=== PATIENT | female | born 1930 | race Caucasian/White ===

== ENCOUNTER → 2016-07-15 | Outpatient (REF) | payer MEDICARE, OTHER ==
[~2016-07-15] MED LIST: ALBU17IN2 INH; ARMO1TAB PO; AZIT500T2 PO; BENZ200C44 PO; FLON0.054; GUAI1TAB PO; LEVA500T PO; PRED20TAB PO; TYLE325T5 PR; tylenol PR
[2016-07-15 18:43] LABS: BASO % 0.4 % (0.0-1.0); EOS # 0.2 K/mm3 (0.0-0.50); EOS % 2.9 % (0.0-3.0); LARGE UNSTAINED CELL # 0.1 K/mm3 (0.0-0.4); LARGE UNSTAINED CELL % 1.8 % (0.0-4.0); LYMPH # 1.8 K/mm3 (1.5-4.5); LYMPH % 27.9 % (24.0-44.0); MEAN CORPUSCULAR HEMOGLOBIN 29.5 pg (27.0-33.0); MEAN CORPUSCULAR HGB CONC 33.1 g/dl (32.0-36.5); MEAN CORPUSCULAR VOLUME 89.4 fl (80.0-96.0); MONO # 0.5 K/mm3 (0.0-0.8); PLATELET COUNT, AUTOMATED 285 k/mm3 (150-450); WHITE BLOOD COUNT 6.6 K/mm3 (4.0-10.0)
[2016-07-15 19:28] LABS: PERCENT SATURATION 24.4 % (13.2-37.4)
== END ==
LOC: M LAB REF 16:23
DX: D50.9 Iron deficiency anemia, unspecified (principal)

== ENCOUNTER → 2016-10-18 | Outpatient (REF) | payer MEDICARE, OTHER ==
[~2016-10-18] MED LIST changes: -BENZ200C44 PO; +BENZ200C53 PO; +LEVA1TAB2 PO; -LEVA500T PO
[2016-10-22 00:07] LABS: Lyme Disease IgG/IgM Antibodie <0.91 ISR (0.00-0.90); Lyme Disease IgM Ab Quantitati <0.80 index (0.00-0.79)
== END ==
LOC: M LAB REF 16:59
PROVIDERS: ATTEND Nurse Practitioner Family
DX: Z11.59 Encounter for screening for other viral diseases (principal); S90.862A Insect bite (nonvenomous), left foot, initial encounter; X58.XXXA Exposure to other specified factors, initial encounter; Y93.9 Activity, unspecified; Y92.9 Unspecified place or not applicable; Y99.8 Other external cause status

== ENCOUNTER → 2017-11-27 | Outpatient (REF) | payer MEDICARE, OTHER ==
[2017-11-27 15:11] LABS: FREE T3 2.7 PG/ML (2.2-4.0)
== END ==
LOC: M LAB REF 13:58
DX: E03.9 Hypothyroidism, unspecified (principal)
CPT/HCPCS: 84481

== ENCOUNTER → 2018-02-23 | Outpatient (REF) | payer MEDICARE, OTHER ==
[2018-02-23 13:25] LABS: FREE T3 2.5 PG/ML (2.2-4.0)
== END ==
LOC: M LAB REF 12:03
DX: E03.9 Hypothyroidism, unspecified (principal)
CPT/HCPCS: 84481

== ENCOUNTER → 2018-02-24 | Outpatient (REF) | payer MEDICARE, OTHER ==
[2018-02-24 16:50] LABS: IONIZED CALCIUM 3.8 MG/DL (4.5-5.3)
[2018-02-24 17:20] LABS: PTH INTACT 14.4 PG/ML (18.5-88.0)
== END ==
LOC: M LAB REF 16:41
DX: E83.51 Hypocalcemia (principal)
CPT/HCPCS: 82330

== ENCOUNTER 2018-03-07 14:55 | Inpatient (IN) | payer MEDICARE, OTHER ==
[2018-03-07 16:02] LABS: BEDSIDE GLUCOSE 93 MG/DL (83-110)
[2018-03-07 16:15] LABS: OSMOLALITY SERUM 289 MOSM/KG (280-301)
[2018-03-07 16:22] LABS: BASO # 0.1 10^3/uL (0.0-0.2); BASO % 0.7 % (0.0-1.0); EOS # 0.3 10^3/uL (0.0-0.50); EOS % 2.9 % (0.0-3.0); HEMATOCRIT 39.2 % (36.0-47.0); IMMATURE GRANULOCYTE % 0.1 % (0-3.0); LYMPH # 2.5 10^3/uL (1.5-4.5); MEAN CORPUSCULAR HEMOGLOBIN 29.7 pg (27.0-33.0); MEAN CORPUSCULAR HGB CONC 33.2 g/dl (32.0-36.5); MEAN CORPUSCULAR VOLUME 89.5 fl (80.0-96.0); MONO # 0.9 10^3/uL (0.0-0.8); MONO % 10.2 % (0.0-5.0); NEUTROPHILS # 4.9 10^3/uL (1.8-7.7); NEUTROPHILS % 57.1 % (36.0-66.0); PLATELET COUNT, AUTOMATED 224 10^3/uL (150-450); RED BLOOD COUNT 4.38 10^6/uL (4.00-5.40); RED CELL DISTRIBUTION WIDTH 12.8 % (11.5-14.5); WHITE BLOOD COUNT 8.7 10^3/uL (4.0-10.0)
[2018-03-07 16:26] LABS: ALBUMIN 3.8 GM/DL (3.2-5.2); ALKALINE PHOSPHATASE 86 U/L (45-117); ALT/SGPT 28 U/L (12-78); ANION GAP 9 MEQ/L (8-16); AST/SGOT 27 U/L (7-37); BILIRUBIN,DIRECT < 0.1 MG/DL (0.0-0.2); BILIRUBIN,TOTAL 0.3 MG/DL (0.2-1.0); BLOOD UREA NITROGEN 22 MG/DL (7-18); CARBON DIOXIDE LEVEL 28 MEQ/L (21-32); CHLORIDE LEVEL 100 MEQ/L (98-107); CPK CREATINE PHOSPHOKINASE 246 U/L (26-192); CREATININE FOR GFR 1.31 MG/DL (0.55-1.30); ETHYL ALCOHOL (ETHANOL) < 0.003 % (0.000-0.010); GLUCOSE, FASTING 99 MG/DL (70-100); MB/CK RELATIVE INDEX 0.81 (< OR =4); SODIUM LEVEL 137 MEQ/L (136-145); THYROID STIMULATING HORMONE 0.413 uIU/ML (0.358-3.740); TROPONIN I < 0.02 NG/ML (< 0.10)
[2018-03-07 17:31] LABS: AMPHETAMINES LEVEL URINE NEGATIVE (NEGATIVE); BARBITURATES URINE NEGATIVE (NEGATIVE); BENZODIAZEPINES URINE NEGATIVE (NEGATIVE); CANNABINOIDS URINE NEGATIVE (NEGATIVE); COCAINE METABOLITE URINE NEGATIVE (NEGATIVE); METHADONE URINE NEGATIVE (NEGATIVE); OPIATES URINE NEGATIVE (NEGATIVE); PHENCYCLIDINE URINE NEGATIVE (NEGATIVE)
[2018-03-07] MEDS: amLODIPine 5 MG TAB PO ×2 (17:36→22:28)
[2018-03-07] MEDS ORDERED: hydrALAZINE INJ 20 MG/ML VIAL IV (19:30)
[2018-03-07] MEDS ORDERED: **hydrALAZINE HCL** 25 MG TAB PO (19:30)
[2018-03-07] MEDS ORDERED: ACETAMINOPHEN TAB 650MG DOSE (2X325MG) PO (19:45)
[2018-03-07] MEDS: **hydrALAZINE HCL** 25 MG TAB PO (22:36)
[2018-03-07] MEDS: MOM 30ML SUSPENSION UDC PO (22:48)
[2018-03-07] MEDS ORDERED: PILL CRUSHER/CUTTER 1 EACH XX (23:00)
[2018-03-07] MEDS ORDERED: THYROID 30 MG TAB PO (23:00)
[2018-03-08 04:37] LABS: BASO # 0.1 10^3/uL (0.0-0.2); BASO % 0.7 % (0.0-1.0); EOS # 0.2 10^3/uL (0.0-0.50); EOS % 2.8 % (0.0-3.0); HEMATOCRIT 37.6 % (36.0-47.0); HEMOGLOBIN 12.3 g/dl (12.0-15.5); IMMATURE GRANULOCYTE % 0.1 % (0-3.0); LYMPH # 2.3 10^3/uL (1.5-4.5); LYMPH % 32.3 % (24.0-44.0); MEAN CORPUSCULAR HEMOGLOBIN 29.7 pg (27.0-33.0); MEAN CORPUSCULAR HGB CONC 32.7 g/dl (32.0-36.5); MEAN CORPUSCULAR VOLUME 90.8 fl (80.0-96.0); MONO # 0.7 10^3/uL (0.0-0.8); MONO % 10.1 % (0.0-5.0); NEUTROPHILS # 3.8 10^3/uL (1.8-7.7); PLATELET COUNT, AUTOMATED 213 10^3/uL (150-450); RED BLOOD COUNT 4.14 10^6/uL (4.00-5.40); RED CELL DISTRIBUTION WIDTH 12.9 % (11.5-14.5); WHITE BLOOD COUNT 7.1 10^3/uL (4.0-10.0)
[2018-03-08 04:58] LABS: FREE T4 0.76 NG/DL (0.76-1.46)
[2018-03-08 05:03] LABS: ALBUMIN 3.4 GM/DL (3.2-5.2); ALBUMIN/GLOBULIN RATIO 1.17 (1.00-1.93); ALKALINE PHOSPHATASE 75 U/L (45-117); ALT/SGPT 21 U/L (12-78); ANION GAP 9 MEQ/L (8-16); AST/SGOT 24 U/L (7-37); BILIRUBIN,TOTAL 0.5 MG/DL (0.2-1.0); BLOOD UREA NITROGEN 22 MG/DL (7-18); CALCIUM LEVEL 6.9 MG/DL (8.8-10.2); CARBON DIOXIDE LEVEL 28 MEQ/L (21-32); CHLORIDE LEVEL 105 MEQ/L (98-107); CREATININE FOR GFR 1.11 MG/DL (0.55-1.30); GLOMERULAR FILTRATION RATE 49.6 (>32); GLUCOSE, FASTING 82 MG/DL (70-100); SODIUM LEVEL 142 MEQ/L (136-145); TOTAL PROTEIN 6.3 GM/DL (6.4-8.2)
[2018-03-08 05:14] LABS: CPK CREATINE PHOSPHOKINASE 223 U/L (26-192); MB/CK RELATIVE INDEX 0.85 (< OR =4); TROPONIN I < 0.02 NG/ML (< 0.10)
[2018-03-08] MEDS: THYROID 30 MG TAB PO (06:02)
[2018-03-08] MEDS: **hydrALAZINE HCL** 25 MG TAB PO ×3 (06:03→21:21)
[2018-03-08 07:32] LABS: FREE T3 2.4 PG/ML (2.2-4.0)
[2018-03-08] MEDS: amLODIPine 10 MG TAB PO (08:54)
[2018-03-09 04:37] LABS: BASO # 0.1 10^3/uL (0.0-0.2); BASO % 0.7 % (0.0-1.0); EOS # 0.3 10^3/uL (0.0-0.50); EOS % 3.3 % (0.0-3.0); HEMATOCRIT 38.9 % (36.0-47.0); HEMOGLOBIN 12.9 g/dl (12.0-15.5); IMMATURE GRANULOCYTE % 0.2 % (0-3.0); LYMPH # 2.5 10^3/uL (1.5-4.5); LYMPH % 30.4 % (24.0-44.0); MEAN CORPUSCULAR HEMOGLOBIN 30.1 pg (27.0-33.0); MEAN CORPUSCULAR HGB CONC 33.2 g/dl (32.0-36.5); MEAN CORPUSCULAR VOLUME 90.7 fl (80.0-96.0); MONO # 0.7 10^3/uL (0.0-0.8); MONO % 8.6 % (0.0-5.0); NEUTROPHILS # 4.6 10^3/uL (1.8-7.7); NEUTROPHILS % 56.8 % (36.0-66.0); PLATELET COUNT, AUTOMATED 219 10^3/uL (150-450); RED BLOOD COUNT 4.29 10^6/uL (4.00-5.40); RED CELL DISTRIBUTION WIDTH 13.2 % (11.5-14.5); WHITE BLOOD COUNT 8.1 10^3/uL (4.0-10.0)
[2018-03-09 04:58] LABS: ALBUMIN 3.3 GM/DL (3.2-5.2); ALBUMIN/GLOBULIN RATIO 0.94 (1.00-1.93); ALKALINE PHOSPHATASE 73 U/L (45-117); ALT/SGPT 22 U/L (12-78); ANION GAP 6 MEQ/L (8-16); AST/SGOT 25 U/L (7-37); BILIRUBIN,TOTAL 0.5 MG/DL (0.2-1.0); BLOOD UREA NITROGEN 27 MG/DL (7-18); CALCIUM LEVEL 6.5 MG/DL (8.8-10.2); CARBON DIOXIDE LEVEL 29 MEQ/L (21-32); CHLORIDE LEVEL 105 MEQ/L (98-107); CREATININE FOR GFR 1.26 MG/DL (0.55-1.30); GLOMERULAR FILTRATION RATE 42.9 (>32); GLUCOSE, FASTING 92 MG/DL (70-100); POTASSIUM SERUM 3.9 MEQ/L (3.5-5.1); SODIUM LEVEL 140 MEQ/L (136-145); TOTAL PROTEIN 6.8 GM/DL (6.4-8.2)
[2018-03-09] MEDS: THYROID 30 MG TAB PO (06:45)
[2018-03-09] MEDS: **hydrALAZINE HCL** 25 MG TAB PO (06:45)
[2018-03-09] MEDS: amLODIPine 10 MG TAB PO (08:49)
== END 2018-03-09 11:10 | disposition hospice, home (50) | DRG 305 ==
LOC: M ED 14:55 → M ED INP 19:34 → M PCU 21:48
DX: I16.0 Hypertensive urgency (principal); H11.31 Conjunctival hemorrhage, right eye; N18.3 Chronic kidney disease, stage 3 (moderate); E03.9 Hypothyroidism, unspecified; Z79.82 Long term (current) use of aspirin; Z79.899 Other long term (current) drug therapy; Z88.0 Allergy status to penicillin; Z88.2 Allergy status to sulfonamides

== ENCOUNTER → 2018-09-04 | Outpatient (CLI) | payer MEDICARE, OTHER ==
[~2018-09-04] MED LIST changes: +AMLO10TA5 PO; +ASPI81TA26 PO; -BENZ200C53 PO; +BENZ200C70 PO; +HYDR-3910 PO; +THYR60TA PO
--- NOTE | 2018-09-04 16:25 | REP ---
Lumbar spine five views History: Back pain There is no acute fracture or subluxation. The lumbar intervertebral discs are decreased in height. Vacuum phenomenon is present at the L2-3 level. These findings are consistent with disc degeneration. Osteophytes are present throughout the lumbar spine. There is narrowing of the L4-5 and L5-L1 facet joints. The bony structure is osteopenic. Impression: Degenerative change as described above. Electronically Signed by Rajinder Green MD 09/04/2018 04:16 P
== END ==
LOC: M WUC 15:45
PROVIDERS: ATTEND Family Medicine
DX: M54.5 Low back pain (principal); M51.36 Other intervertebral disc degeneration, lumbar region

== ENCOUNTER 2018-10-24 15:53 | Inpatient (IN) | payer MEDICARE, OTHER ==
[~2018-10-24] VITALS: Ht 154.9 cm; Wt 61.6 kg
[2018-10-24] MEDS ORDERED: ACETAMINOPHEN TAB 650MG DOSE (2X325MG) PO ONE (16:30)
[2018-10-24] MEDS ORDERED: ONDANSETRON 4MG/2ML VIAL (J2405) IV ONE (16:30)
[2018-10-24] MEDS ORDERED: NS 500 ML IV ONE (16:30)
[2018-10-24 16:31] LABS: BASO % 0.2 % (0.0-1.0); HEMATOCRIT 36.7 % (36.0-47.0); HEMOGLOBIN 12.5 g/dl (12.0-15.5); LYMPH # 0.6 10^3/uL (1.5-4.5); LYMPH % 3.5 % (24.0-44.0); MEAN CORPUSCULAR HEMOGLOBIN 30.5 pg (27.0-33.0); MEAN CORPUSCULAR HGB CONC 34.1 g/dl (32.0-36.5); MEAN CORPUSCULAR VOLUME 89.5 fl (80.0-96.0); MONO # 1.4 10^3/uL (0.0-0.8); MONO % 8.2 % (0.0-5.0); NEUTROPHILS # 14.7 10^3/uL (1.8-7.7); NEUTROPHILS % 87.7 % (36.0-66.0); PLATELET COUNT, AUTOMATED 201 10^3/uL (150-450); WHITE BLOOD COUNT 16.8 10^3/uL (4.0-10.0)
[2018-10-24 16:58] LABS: ALBUMIN 3.3 GM/DL (3.2-5.2); BILIRUBIN,DIRECT 0.2 MG/DL (0.0-0.2); BILIRUBIN,TOTAL 0.8 MG/DL (0.2-1.0); CALCIUM LEVEL 6.5 MG/DL (8.8-10.2); CREATININE FOR GFR 1.23 MG/DL (0.55-1.30); POTASSIUM SERUM 3.6 MEQ/L (3.5-5.1)
[2018-10-24] MEDS ORDERED: NS 1,000 ML IV ONE (17:30)
[2018-10-24] MEDS ORDERED: ISOVUE-370 76% 100ML VIAL (Q9967) As Ordered ONE (17:34)
--- NOTE | 2018-10-24 17:45 | REP ---
Clinical: Nausea. Technique: PA and lateral. Comparison: 07/25/2016. Findings: Left basilar atelectasis and small left pleural effusion identified on frontal radiograph with suspected left upper lobe atelectasis/infiltrate identified by lateral radiograph. Mediastinum and cardiac silhouette are normal. Right hemithorax appears clear. Skeletal structures are intact. Impression: Left upper lobe infiltrate and a left basilar atelectasis with small left pleural reaction. Follow-up to resolution is recommended. Electronically Signed by Dionicio Gerber MD 10/24/2018 05:36 P
[2018-10-24] MEDS ORDERED: HYDR25TA PO (18:03)
[2018-10-24 18:09] LABS: FREE T4 1.22 NG/DL (0.76-1.46); THYROID STIMULATING HORMONE 0.297 uIU/ML (0.358-3.740)
[2018-10-24] MEDS ORDERED: AZITHROMYCIN INJ 500 MG, VIAL MATE ADAPTER 1 EACH in D5W 250 ML IV ONE (19:00)
[2018-10-24] MEDS ORDERED: cefTRIAXone SOD 1 GM in D5W MINI-BAG PLUS 50 ML IV ONE (19:15)
--- NOTE | 2018-10-24 19:44 | REPVR ---
EXAM: US Pelvis Complete, Transabdominal EXAM DATE/TIME: 10/24/2018 6:03 PM CLINICAL HISTORY: 88 years old, female; generalized pelvic pain. Total hysterectomy for cervical cancer in ~1968. TECHNIQUE: Imaging protocol: Real-time transabdominal pelvic ultrasound with image documentation. Complete exam. COMPARISON: CT ABD/PEL W/IV CONTRAST ONLY 10/24/2018 5:38 PM FINDINGS: Uterus/cervix: Surgically absent. Right adnexa: Surgically absent. Left adnexa: Surgically absent. Free fluid: There is no free fluid. Bladder: 8.2 x 6.1 x 5.0 cm. Its volume is ~131 mL. There is no bladder wall thickening, mass or stone. There is a minimal amount of non-shadowing debris in the bladder. IMPRESSION: 1. The uterus and ovaries are surgically absent 2. The bladder is unremarkable except for minimal debris. Electronically signed by: Braulio Merlos On 10/24/2018 19:43:54 PM
--- NOTE | 2018-10-24 20:07 | REPVR ---
EXAM: CT Abdomen and Pelvis With Contrast EXAM DATE/TIME: 10/24/2018 5:39 PM CLINICAL HISTORY: 88 years old, female; Generalized abdominal pain TECHNIQUE: Imaging protocol: Axial computed tomography images of the abdomen and pelvis with intravenous contrast. Coronal and sagittal reformatted images were created and reviewed. Radiation optimization: All CT scans at this facility use at least one of these dose optimization techniques: automated exposure control; mA and/or kV adjustment per patient size (includes targeted exams where dose is matched to clinical indication); or iterative reconstruction. Contrast material: ISOVUE 370;Contrast volume: 100 ml;Contrast route: IV; COMPARISON: No relevant prior studies available. FINDINGS: Lungs: A subpleural pulmonary nodule at the posterior lateral aspect of the inferior lingular segment of the left upper lobe is incompletely imaged. It is at least 4 x 6 x 10 mm. The lung bases are otherwise clear. Heart: Heart size is normal. Liver: Focal hepatic steatosis at the anterolateral edge of segment 4 adjacent to the falciform ligament, which is a common incidental benign finding. The liver is otherwise unremarkable. Gallbladder and bile ducts: No biliary ductal dilatation. Pancreas: Normal. No ductal dilation. Spleen: Normal. No splenomegaly. Adrenals: Normal. No mass. Kidneys and ureters: Normal. No hydronephrosis. Stomach and bowel: Moderate sigmoid colonic diverticulosis without evidence of diverticulitis. Apparent colonic wall thickening at descending and proximal sigmoid colon is probably due to incomplete distention, but mild colitis cannot be excluded in the appropriate clinical setting (coronal image 40 and sagittal image 86). Appendix: The appendix is not identified. It may be surgically absent. There are no signs of appendicitis in its expected location. Intraperitoneal space: ~2 cc of free fluid in the posterior cul-de-sac has a density of only 0 HU. Vasculature: There is mild calcific atherosclerosis of the abdominal aorta and iliac arteries. There is no aneurysm. Lymph nodes: Normal. No enlarged lymph nodes. Bladder: Unremarkable as visualized. Reproductive: The uterus and ovaries are surgically absent. Bones/joints: Severe disc degeneration and narrowing at the tip between L2 and S1. Soft tissues: Unremarkable. IMPRESSION: 1. Moderate sigmoid colonic diverticulosis without evidence of diverticulitis. 2. Apparent colonic wall thickening at descending and proximal sigmoid colon is probably due to incomplete distention, but mild colitis cannot be excluded in the appropriate clinical setting. 3. ~2 cc of free fluid in the posterior cul-de-sac. 4. The uterus and ovaries are surgically absent. 5. A subpleural pulmonary nodule at the posterior lateral aspect of the inferior lingular segment of the left upper lobe is incompletely imaged. It is at least 4 x 6 x 10 mm. It is statistically most likely scarring or atelectasis. Neoplasia is unlikely, but cannot be excluded. In light of any comorbidities and the patient's age, a followup noncontrast chest CT in 3 months may be considered. Electronically signed by: Braulio Merlos On 10/24/2018 20:06:45 PM
[2018-10-24] MEDS ORDERED: MAALOX 30 ML SUSP *UDC PO PRN (20:15)
[2018-10-24] MEDS ORDERED: MOM 30ML SUSPENSION UDC PO PRN (20:15)
[2018-10-24] MEDS ORDERED: PILL CUTTER 1 EACH XX PRN (20:30)
[2018-10-25 00:30] VITALS: BP 143/68
[2018-10-25] MEDS ORDERED: PANTOPRAZOLE 40MG INJ (PROTONIX) (C9113) IV ONE (00:45)
[2018-10-25] MEDS ORDERED: ONDANSETRON 4MG/2ML VIAL (J2405) IV PRN (00:45)
[2018-10-25] MEDS: ACETAMINOPHEN 500 MG TAB PO PRN ×2 (00:59→09:13)
[2018-10-25] MEDS: DOCUSATE SODIUM 100 MG CAP PO SCH ×3 (00:59→20:25)
[2018-10-25 01:15] LABS: IONIZED CALCIUM 2.9 MG/DL (4.5-5.3)
[2018-10-25 01:51] LABS: CALCIUM LEVEL 5.7 MG/DL (8.8-10.2); CREATININE FOR GFR 1.38 MG/DL (0.55-1.30); GLOMERULAR FILTRATION RATE 38.5 (>32); POTASSIUM SERUM 3.8 MEQ/L (3.5-5.1)
[2018-10-25] MEDS ORDERED: CALCIUM GLUCONATE 1,000 MG in D5W MINI-BAG PLUS 100 ML IV ONE ×2 (02:00→22:45)
--- NOTE | 2018-10-25 02:01 | HPEPDOC ---
General Date of Admission 10/24/18 Date of Service: Oct 24, 2018 Chief Complaint The patient is a 88-year-old female admitted with a reason for visit of [facility]. 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 was sent to ED from urgent care for evaluation > here found to be febrile to 103,4, CXR showed left upper lobe infiltrates. Patient was admitted for community acquired pneumonia. She denied any cough before just started some cough in the ED. no phlegm production, poor appetite for 3 days and had chills 2 days ago and yesterday also. Home Medications Scheduled Aspirin (Aspirin EC) 81 Mg Tab, 81 MG PO DAILY, (Reported) Hydralazine HCl (Hydralazine HCl) 25 Mg Tablet, 25 MG PO BID, (Reported) Thyroid ([place] Thyroid) 60 Mg Tab, 60 MG PO DAILY, (Reported) TAKES WITH 15MG OF 30MG TALBET FOR TOTAL OF 75MG Thyroid,Pork ([place] Thyroid) 30 Mg Tab, 15 MG PO DAILY, (Reported) TAKES WITH 60MG TABLET FOR TOTAL DOSE OF 75MG Allergies Coded Allergies: Penicillins (Verified Allergy, Unknown, 10/24/18) sulfamethoxazole (Verified Allergy, Unknown, 10/24/18) trimethoprim (Verified Allergy, Unknown, 10/24/18) Past Medical History Medical History hypertension, hypothyroid, DM- diet controlled, HLD, hypocalcemia secondary to Iatrogenic hypoparathyroidism, CKD 3 and cervical cancer S/P resection, Cervical spondylosis. Surgical History bilateral cataract surgery tonsillectomy thyroidectomy hysterectomy and bilateral oophorectomy left ankle surgery Family History Significant Family History: Cancer (mother pancreatic cancer) Social History * Smoker: Denies Alcohol: Denies Drugs: denies A-FIB/CHADSVASC A-FIB History Current/History of A-Fib/PAF?: No Review of Systems Constitutional: Reports: Chills, Malaise Eyes: Denies: Pain, Vision change ENT: Denies: Head Aches, Ear Pain, Dysphagia Skin: Denies: Rash, Lesions, Breakdown Pulmonary: Reports: Cough; Denies: Dyspnea, Pleuritic Chest Pain, Other Symptoms Cardiovascular: Denies: Chest Pain, Palpitations, Orthopnea, Paroxysmal Noc. Dyspnea, Lt Headedness Gastrointestinal: Reports: Nausea, Constipation, Other Symptoms; Denies: Vomiting, Abdominal Pain, Diarrhea Genitourinary: Denies: Dysuria, Frequency, Incontinence, Retention Hematologic: Denies: Bruising, Bleeding Excessively Musculoskeletal: Denies: Neck Pain, Back Pain, Joint Pain, Muscle Pain, Spasms Neurological: Denies: Weakness, Numbness, Change in speech, Confusion Physical Examination General Exam: Positive: Alert, Cooperative, No Acute Distress Eye Exam: Positive: PERRLA, Conjunctiva & lids normal, EOMI; Negative: Sclera icteric ENT Exam: Positive: Atraumatic, Mucous membr. moist/pink, Pharynx Normal Neck Exam: Positive: Supple; Negative: JVD, thyromegaly Chest Exam: Positive: Clear to auscultation, Normal air movement, Other (few crackles in the left middle back) Heart Exam: Positive: Rate Normal, Regular Rhythm, Normal S1, Normal S2; Negative: Murmurs, Rubs Telemetry: Positive: No significant arrhythmia Abdomen Exam: Positive: Normal bowel sounds, Soft; Negative: Tenderness, Hepatospenomegaly Extremity Exam: Positive: Normal pulses; Negative: Clubbing, Cyanosis, Edema Skin Exam: Positive: Nl turgor and temperature; Negative: Breakdown, Lesion Neuro Exam: Positive: Normal Speech, Strength at 5/5 X4 ext, Normal Tone Psych Exam: Positive: Mental status NL, Mood NL, Oriented x 3 Vital Signs Vital Signs Date Time Temp Pulse Resp B/P (MAP) Pulse Ox O2 Delivery O2 Flow Rate FiO2 10/24/18 18:14 97.9 10/24/18 17:19 123/58 (79) 10/24/18 15:54 98 22 99 Room Air Laboratory Data Labs 24H Laboratory Tests 2 10/24/18 16:14: Osmolality 262L, Whole Blood Ionized Calcium 3.1*L 10/24/18 16:16: Immature Granulocyte % (Auto) 0.4, White Blood Count 16.8H, Red Blood Count 4.10, Hemoglobin 12.5, Hematocrit 36.7, Mean Corpuscular Volume 89.5, Mean Corpuscular Hemoglobin 30.5, Mean Corpuscular Hemoglobin Concent 34.1, Red Cell Distribution Width 13.2, Platelet Count 201, Neutrophils (%) (Auto) 87.7H, Lymphocytes (%) (Auto) 3.5L, Monocytes (%) (Auto) 8.2H, Eosinophils (%) (Auto) 0.0, Basophils (%) (Auto) 0.2, Neutrophils # (Auto) 14.7H, Lymphocytes # (Auto) 0.6L, Monocytes # (Auto) 1.4H, Eosinophils # (Auto) 0.0, Basophils # (Auto) 0.0, Nucleated Red Blood Cells % (auto) 0.0, Anion Gap 12, Glomerular Filtration Rate 44.0, Lactic Acid Level 1.0, Calcium Level 6.5L, Aspartate Amino Transf (AST/SGOT) 27, Alanine Aminotransferase (ALT/SGPT) 16, Alkaline Phosphatase 78, Total Bilirubin 0.8, Direct Bilirubin 0.2, Total Protein 8.0, Albumin 3.3, Albumin/Globulin Ratio 0.70L, Lipase 173, Thyroid Stimulating Hormone (TSH) 0.297L, Free Thyroxine 1.22 10/24/18 16:42: Urine Color YELLOW, Urine Appearance CLEAR, Urine pH 6.0, Urine Specific [place] 1.011, Urine Protein 1+H, Urine Glucose (UA) NEGATIVE, Urine Ketones 1+H, Urine Blood 2+H, Urine Nitrite NEGATIVE, Urine Bilirubin NEGATIVE, Urine Urobilinogen 0.2, Urine Leukocyte Esterase NEGATIVE, Urine WBC (Auto) 1, Urine RBC (Auto) 24H, Urine Hyaline Casts (Auto) 0, Urine Bacteria (Auto) NEGATIVE, Urine Squamous Epithelial Cells 0, Urine Sperm (Auto) 10/24/18 17:39: Urine Random Osmolality 400L, Urine Random Creatinine 120.0, Urine Random Sodium 10 CBC/BMP Laboratory Tests 10/24/18 16:16 Red Blood Count 4.10, Mean Corpuscular Volume 89.5, Mean Corpuscular Hemoglobin 30.5, Mean Corpuscular Hemoglobin Concent 34.1, Red Cell Distribution Width 13.2, Neutrophils (%) (Auto) 87.7 H, Lymphocytes (%) (Auto) 3.5 L, Monocytes (%) (Auto) 8.2 H, Eosinophils (%) (Auto) 0.0, Basophils (%) (Auto) 0.2, Neutrophils # (Auto) 14.7 H, Lymphocytes # (Auto) 0.6 L, Monocytes # (Auto) 1.4 H, Eosinophils # (Auto) 0.0, Basophils # (Auto) 0.0 Microbiology Microbiology 10/24/18 Blood Culture, Received Pending 10/24/18 Blood Culture, Received Pending Assessment/Plan 88 year old female with PMH of hypertension, hypothyroid , hyperlipidemia, ckd stage 3, DM diet controlled, 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 was sent to ED from urgent care for evaluation > here found to be febrile to 103,4, CXR showed left upper lobe infiltrates. Patient was admitted for community acquired pneumonia. Pneumonia will continue ceftriaxone blood cultures ordered. sputum culture, urine legionella, urine pneumococcal antigen. Hyponatremia could be due to pneumonia will monitor on IVF will recheck in 6 hours. Lactacidosis continue IVF. Hypothyroid h/o hemithyroidectomy continue home meds Iatrogenic Hypoparathyroid with hypocalcemia calcium gluconate and start oral replacement with calcitriol and calcium carbonate. Hypertension Bp well controlled will hold hydralazine for now. Left lung nodule/fibrosis/atelectasis may need follow up. Plan / VTE VTE Prophylaxis Ordered?: Yes KAREN DIXON MD Oct 24, 2018 19:41
[2018-10-25 02:25] LABS: MAGNESIUM LEVEL 2.2 MG/DL (1.8-2.4)
[2018-10-25 06:00] VITALS: BP 125/53
[2018-10-25] MEDS ORDERED: LevoFLOXacin 750 MG TABLET PO SCH (06:00)
[2018-10-25 06:33] LABS: BASO % 0.2 % (0.0-1.0); HEMATOCRIT 31.1 % (36.0-47.0); HEMOGLOBIN 10.6 g/dl (12.0-15.5); LYMPH # 0.5 10^3/uL (1.5-4.5); LYMPH % 3.9 % (24.0-44.0); MEAN CORPUSCULAR HEMOGLOBIN 30.5 pg (27.0-33.0); MEAN CORPUSCULAR HGB CONC 34.1 g/dl (32.0-36.5); MEAN CORPUSCULAR VOLUME 89.4 fl (80.0-96.0); MONO # 1.1 10^3/uL (0.0-0.8); MONO % 8.6 % (0.0-5.0); NEUTROPHILS # 11.5 10^3/uL (1.8-7.7); NEUTROPHILS % 86.8 % (36.0-66.0); PLATELET COUNT, AUTOMATED 170 10^3/uL (150-450); RED BLOOD COUNT 3.48 10^6/uL (4.00-5.40); WHITE BLOOD COUNT 13.2 10^3/uL (4.0-10.0)
[2018-10-25 06:55] LABS: CALCIUM LEVEL 5.6 MG/DL (8.8-10.2); CREATININE FOR GFR 1.26 MG/DL (0.55-1.30); GLOMERULAR FILTRATION RATE 42.8 (>32); POTASSIUM SERUM 3.8 MEQ/L (3.5-5.1)
[2018-10-25] MEDS ORDERED: FAMOTIDINE 20 MG TAB PO SCH (09:00)
[2018-10-25] MEDS: CALCITRIOL 0.25 MCG CAP (S0169) PO SCH ×2 (09:11→20:23)
[2018-10-25] MEDS: THYROID 30 MG TAB PO SCH ×2 (09:12)
[2018-10-25] MEDS: ASPIRIN 81 MG ENTERIC TAB PO SCH (09:12)
[2018-10-25] MEDS: CALCIUM CARBONATE 500 MG CHEW U/D PO SCH ×4 (09:13→20:27)
[2018-10-25] MEDS: ENOXAPARIN 30 MG/0.3 ML SYR (J1650) SC SCH (09:13)
--- NOTE | 2018-10-25 11:18 | ECGEPIP ---
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
--- NOTE | 2018-10-25 12:44 | IPNPDOC ---
Date Seen The patient was seen on 10/25/18. Progress Note SUBJECTIVE: breathing is significantly improved feels better OBJECTIVE PHYSICAL EXAMINATION: VITAL SIGNS: Please see below. 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 was sent to ED from urgent care for evaluation > here found to be febrile to 103,4, CXR showed left upper lobe infiltrates. Patient was admitted for community acquired pneumonia. Pneumonia will continue ceftriaxone + azithro improving Hyponatremia improving sp IVFs CTM Lactacidosis sp IVFs Hypothyroid h/o hemithyroidectomy continue home meds Iatrogenic Hypoparathyroid with hypocalcemia sp calcium gluconate and start oral replacement with calcitriol and calcium carbonate. Hypertension Bp well controlled will hold hydralazine for now. Left lung nodule/fibrosis/atelectasis may need follow up. Dispo: PT consult for dc planning VS, I&O, 24H, [facility] Vital Signs/I&O Vital Signs Date Time Temp Pulse Resp B/P (MAP) Pulse Ox O2 Delivery O2 Flow Rate FiO2 10/25/18 09:50 2.0 10/25/18 06:00 98.2 74 17 125/53 (77) 93 10/25/18 00:04 Room Air I&O- Last 24 Hours up to 6 AM 10/25/18 06:00 Intake Total 1100 ml Output Total 0 ml Balance 1100 ml Laboratory Data 24H LABS Laboratory Tests 2 10/24/18 16:14: Osmolality 262L, Whole Blood Ionized Calcium 3.1*L 10/24/18 16:16: Immature Granulocyte % (Auto) 0.4, White Blood Count 16.8H, Red Blood Count 4.10, Hemoglobin 12.5, Hematocrit 36.7, Mean Corpuscular Volume 89.5, Mean Corpuscular Hemoglobin 30.5, Mean Corpuscular Hemoglobin Concent 34.1, Red Cell Distribution Width 13.2, Platelet Count 201, Neutrophils (%) (Auto) 87.7H, Lymphocytes (%) (Auto) 3.5L, Monocytes (%) (Auto) 8.2H, Eosinophils (%) (Auto) 0.0, Basophils (%) (Auto) 0.2, Neutrophils # (Auto) 14.7H, Lymphocytes # (Auto) 0.6L, Monocytes # (Auto) 1.4H, Eosinophils # (Auto) 0.0, Basophils # (Auto) 0.0, Nucleated Red Blood Cells % (auto) 0.0, Anion Gap 12, Glomerular Filtration Rate 44.0, Lactic Acid Level 1.0, Calcium Level 6.5L, Aspartate Amino Transf (AST/SGOT) 27, Alanine Aminotransferase (ALT/SGPT) 16, Alkaline Phosphatase 78, Total Bilirubin 0.8, Direct Bilirubin 0.2, Total Protein 8.0, Albumin 3.3, [place] min/Globulin Ratio 0.70L, Lipase 173, Thyroid Stimulating Hormone (TSH) 0.297L, Free Thyroxine 1.22 10/24/18 16:42: Urine Color YELLOW, Urine Appearance CLEAR, Urine pH 6.0, Urine Specific [place] 1.011, Urine Protein 1+H, Urine Glucose (UA) NEGATIVE, Urine Ketones 1+H, Urine Blood 2+H, Urine Nitrite NEGATIVE, Urine Bilirubin NEGATIVE, Urine Urobilinogen 0.2, Urine Leukocyte Esterase NEGATIVE, Urine WBC (Auto) 1, Urine RBC (Auto) 24H, Urine Hyaline Casts (Auto) 0, Urine Bacteria (Auto) NEGATIVE, Urine Squamous Epithelial Cells 0, Urine Sperm (Auto) 10/24/18 17:39: Urine Random Osmolality 400L, Urine Random Creatinine 120.0, Urine Random Sodium 10 10/25/18 01:03: Anion Gap 13, Glomerular Filtration Rate 38.5, Blood Urea Nitrogen 18, Creatinine 1.38H, Sodium Level 133#L, Potassium Level 3.8, Chloride Level 99, Carbon Dioxide Level 21, Calcium Level 5.7*L, Whole Blood Ionized Calcium 2.9*L, Magnesium Level 2.2 10/25/18 06:08: Anion Gap 8, Glomerular Filtration Rate 42.8, Blood Urea Nitrogen 17, Creatinine 1.26, Sodium Level 130L, Potassium Level 3.8, Chloride Level 98, Carbon Dioxide Level 24, Calcium Level 5.6*L, Whole Blood Ionized Calcium 3.3*L, Immature Granulocyte % (Auto) 0.5, White Blood Count 13.2H, Red Blood Count 3.48L, Hemoglobin 10.6L, Hematocrit 31.1L, Mean Corpuscular Volume 89.4, Mean C orpuscular Hemoglobin 30.5, Mean Corpuscular Hemoglobin Concent 34.1, Red Cell Distribution Width 13.2, Platelet Count 170, Neutrophils (%) (Auto) 86.8H, Lymphocytes (%) (Auto) 3.9L, Monocytes (%) (Auto) 8.6H, Eosinophils (%) (Auto) 0.0, Basophils (%) (Auto) 0.2, Neutrophils # (Auto) 11.5H, Lymphocytes # (Auto) 0.5L, Monocytes # (Auto) 1.1H, Eosinophils # (Auto) 0.0, Basophils # (Auto) 0.0, Nucleated Red Blood Cells % (auto) 0.0 CBC/BMP Laboratory Tests 10/24/18 16:16 Red Blood Count 4.10, Mean Corpuscular Volume 89.5, Mean Corpuscular Hemoglobin 30.5, Mean Corpuscular Hemoglobin Concent 34.1, Red Cell Distribution Width 13.2, Neutrophils (%) (Auto) 87.7 H, Lymphocytes (%) (Auto) 3.5 L, Monocytes (%) (Auto) 8.2 H, Eosinophils (%) (Auto) 0.0, Basophils (%) (Auto) 0.2, Neutrophils # (Auto) 14.7 H, Lymphocytes # (Auto) 0.6 L, Monocytes # (Auto) 1.4 H, Eosinophils # (Auto) 0.0, Basophils # (Auto) 0.0 10/25/18 01:03 Calcium Level 5.7 *L 10/25/18 06:08 Red Blood Count 3.48 L, Mean Corpuscular Volume 89.4, Mean Corpuscular Hem oglobin 30.5, Mean Corpuscular Hemoglobin Concent 34.1, Red Cell Distribution Width 13.2, Neutrophils (%) (Auto) 86.8 H, Lymphocytes (%) (Auto) 3.9 L, Monocytes (%) (Auto) 8.6 H, Eosinophils (%) (Auto) 0.0, Basophils (%) (Auto) 0.2, Neutrophils # (Auto) 11.5 H, Lymphocytes # (Auto) 0.5 L, Monocytes # (Auto) 1.1 H, Eosinophils # (Auto) 0.0, Basophils # (Auto) 0.0, Calcium Level 5.6 *L Microbiology Microbiology 10/24/18 Blood Culture, Received Pending 10/24/18 Blood Culture, Received Pending CLAYTON FOSTER MD Oct 25, 2018 12:44
[2018-10-25 14:00] VITALS: BP 109/44
[2018-10-25] MEDS ORDERED: AZITHROMYCIN 250 MG TAB PO SCH (21:00)
[2018-10-25 22:00] VITALS: BP 141/58
[2018-10-25] MEDS ORDERED: cefTRIAXone SOD 1 GM in D5W MINI-BAG PLUS 50 ML IV SCH (22:00)
[2018-10-25 22:34] LABS: CALCIUM LEVEL 5.7 MG/DL (8.8-10.2); CREATININE FOR GFR 1.36 MG/DL (0.55-1.30); GLOMERULAR FILTRATION RATE 39.2 (>32); POTASSIUM SERUM 3.7 MEQ/L (3.5-5.1)
[2018-10-25] MEDS ORDERED: FUROSEMIDE 20 MG/2 ML VIAL (J1940) IV ONE (23:45)
--- NOTE | 2018-10-26 00:09 | REPVR ---
EXAM: XR Abdomen, 1 View EXAM DATE/TIME: 10/25/2018 11:09 PM CLINICAL HISTORY: 88 years old, female; Bloating; Additional info: Abdominal distension TECHNIQUE: Imaging protocol: Frontal supine view of the abdomen/pelvis. COMPARISON: CT ABD/PEL W/IV CONTRAST ONLY 10/24/2018 5:38 PM FINDINGS: Gastrointestinal tract: Mild to moderate bowel gas with borderline to mild small bowel gas distention. There is relative paucity of colonic gas. Mild gas is noted in the stomach. Bones/joints: Degenerative change of the lumbar spine. IMPRESSION: Mild to moderate bowel gas with borderline to mild small bowel distention suggesting a small bowel obstruction. Electronically signed by: Malcolm Ortiz On 10/26/2018 00:09:08 AM
[2018-10-26] MEDS ORDERED: D5W/0.9% SODIUM CHLORIDE 1,000 ML IV SCH (02:45)
--- NOTE | 2018-10-26 03:00 | IPNPDOC ---
Text Note Date of Service The patient was seen on 10/26/18. NOTE All night patient very uncomfortable moaning and groaning. She complains that she has been unable to urinate all day and her abdomen is swollen with fluids. She was demanding lasix which takes at home. On my exam compared to yesterday her abdomen was significantly distended, tympanitic, bowel sounds present but sluggish. Bladder scan showed about 22 ml, Nurses tried to cath the patient but failed in the meantime patient urinated a significant amount spontaneously So Cath placement was held off. Also she was having several liquid stools though she is on colace which i have stopped. I ordered repeat labs and abdominal Xray which showed moderate gaseous distension of the small bowel and stomach , minimal gas in colon suggestive of SBO. I placed the Patient NPO, changed most of her meds to IV meds, NG insertion and suction. I did give her a dose of calcium gluconate and a dose of Lasix. Will start her on gentel hydration. Consider Surgical consult in the AM. Raina ALFREDO, I+O VSRaina, I+O Laboratory Tests 10/25/18 06:08 Red Blood Count 3.48 L, Mean Corpuscular Volume 89.4, Mean Corpuscular Hemoglobin 30.5, Mean Corpuscular Hemoglobin Concent 34.1, Red Cell Distribution Width 13.2, Neutrophils (%) (Auto) 86.8 H, Lymphocytes (%) (Auto) 3.9 L, Monocytes (%) (Auto) 8.6 H, Eosinophils (%) (Auto) 0.0, Basophils (%) (Auto) 0.2, Neutrophils # (Auto) 11.5 H, Lymphocytes # (Auto) 0.5 L, Monocytes # (Auto) 1.1 H, Eosinophils # (Auto) 0.0, Basophils # (Auto) 0.0, Calcium Level 5.6 *L 10/25/18 22:10 Calcium Level 5.7 *L Vital Signs Date Time Temp Pulse Resp B/P (MAP) Pulse Ox O2 Delivery O2 Flow Rate FiO2 10/25/18 22:00 98.5 81 20 141/58 (85) 98 2.0 10/25/18 00:04 Room Air I&O- Last 24 Hours up to 6 AM 10/26/18 06:00 Intake Total 1300 ml Output Total 500 ml Balance 800 ml KAREN DIXON MD Oct 26, 2018 03:00
[2018-10-26] MEDS: cefTRIAXone SOD 1 GM in D5W MINI-BAG PLUS 50 ML IV SCH (04:22)
[2018-10-26] MEDS ORDERED: FUROSEMIDE 20 MG/2 ML VIAL (J1940) IV ONE (05:00)
[2018-10-26 05:42] LABS: BASO % 0.3 % (0.0-1.0); EOS % 0.2 % (0.0-3.0); HEMATOCRIT 29.8 % (36.0-47.0); HEMOGLOBIN 10.1 g/dl (12.0-15.5); LYMPH # 0.7 10^3/uL (1.5-4.5); LYMPH % 6.1 % (24.0-44.0); MEAN CORPUSCULAR HEMOGLOBIN 29.4 pg (27.0-33.0); MEAN CORPUSCULAR HGB CONC 33.9 g/dl (32.0-36.5); MEAN CORPUSCULAR VOLUME 86.6 fl (80.0-96.0); MONO # 1.1 10^3/uL (0.0-0.8); MONO % 9.1 % (0.0-5.0); NEUTROPHILS # 9.7 10^3/uL (1.8-7.7); NEUTROPHILS % 83.9 % (36.0-66.0); PLATELET COUNT, AUTOMATED 187 10^3/uL (150-450); RED BLOOD COUNT 3.44 10^6/uL (4.00-5.40); WHITE BLOOD COUNT 11.6 10^3/uL (4.0-10.0)
[2018-10-26 06:00] VITALS: BP 135/62
[2018-10-26 06:00] LABS: CALCIUM LEVEL 6.3 MG/DL (8.8-10.2); CREATININE FOR GFR 1.45 MG/DL (0.55-1.30); GLOMERULAR FILTRATION RATE 36.4 (>32); POTASSIUM SERUM 3.7 MEQ/L (3.5-5.1)
--- NOTE | 2018-10-26 08:03 | REPVR ---
EXAM: CT Abdomen and Pelvis Without Contrast EXAM DATE/TIME: 10/26/2018 7:48 AM CLINICAL HISTORY: 88 years old, female; Pain and Abnormal Findings; Abnormal Radiologic Finding of the Abdomen; Radiologic exam and body structure: CT A/P AND ABD XRAY; Abdominal tenderness and Bloating and Constipation and Nausea; Abdominal pain; Generalized; Additional Info: abd pain, xray with possible SBO TECHNIQUE: Imaging protocol: Axial computed tomography images of the abdomen and pelvis without contrast. Coronal and sagittal reformatted images were created and reviewed. Radiation optimization: All CT scans at this facility use at least one of these dose optimization techniques: automated exposure control; mA and/or kV adjustment per patient size (includes targeted exams where dose is matched to clinical indication); or iterative reconstruction. COMPARISON: CT ABD/PEL W/IV CONTRAST ONLY 10/24/2018 5:38 PM FINDINGS: Lungs: Focal consolidation in the lingula. Pleural space: Moderate bilateral pleural effusions. Liver: Normal. No mass. Gallbladder and bile ducts: Normal. No calcified stones. No ductal dilation. Pancreas: Normal. No ductal dilation. Spleen: Normal. No splenomegaly. Adrenals: Normal. No mass. Kidneys and ureters: Normal. No hydronephrosis. Stomach and bowel: Fluid in the right colon. Sigmoid diverticulosis without diverticulitis. No abnormal bowel dilatation. No abnormal bowel wall thickening. Appendix: The appendix is not seen. However, there is no evidence of appendicitis. Intraperitoneal space: No free air. Mild ascites. Vasculature: No abdominal aortic aneurysm. Moderate calcified atherosclerotic disease. Lymph nodes: Normal. No enlarged lymph nodes. Bladder: Unremarkable as visualized. Reproductive: Status post hysterectomy. Bones/joints: Severe degenerative spine. Mild degenerative changes of the hips. No acute fracture. Soft tissues: Status post subcutaneous injection in the ventral left hemiabdomen. There are multiple granulomas in the subcutaneous tissue in the buttock. IMPRESSION: 1. Diarrhea of unknown etiology. 2. Mild ascites. Unchanged from prior. 3. Focal consolidation in the lingula. Increased from prior. Suspicious for pneumonia. 4. Bilateral pleural effusions. Increased from prior. 5. Additional findings as described. Electronically signed by: Chico Ruiz On 10/26/2018 08:02:27 AM
[2018-10-26 08:54] LABS: ALBUMIN 2.2 GM/DL (3.2-5.2); BILIRUBIN,DIRECT 0.1 MG/DL (0.0-0.2); BILIRUBIN,TOTAL 0.2 MG/DL (0.2-1.0); TOTAL PROTEIN 6.2 GM/DL (6.4-8.2)
[2018-10-26] MEDS ORDERED: LevoFLOXacin 750 MG TABLET PO SCH (09:00)
[2018-10-26] MEDS: CALCITRIOL 0.25 MCG CAP (S0169) PO SCH ×2 (09:13→21:36)
[2018-10-26] MEDS: ASPIRIN 81 MG ENTERIC TAB PO SCH (09:13)
[2018-10-26] MEDS: PANTOPRAZOLE 40MG INJ (PROTONIX) (C9113) IV SCH (09:13)
[2018-10-26] MEDS: CALCIUM CARBONATE 500 MG CHEW U/D PO SCH ×3 (09:13→21:37)
[2018-10-26] MEDS: ENOXAPARIN 30 MG/0.3 ML SYR (J1650) SC SCH (09:13)
[2018-10-26] MEDS: THYROID 30 MG TAB PO SCH ×2 (09:14→09:18)
[2018-10-26] MEDS: CALCIUM GLUCONATE 1,000 MG in D5W MINI-BAG PLUS 100 ML IV SCH ×2 (09:14→21:36)
[2018-10-26] MEDS ORDERED: LORazepam 0.5 MG TAB PO ONE (10:30)
[2018-10-26 14:00] VITALS: BP 131/61
--- NOTE | 2018-10-26 14:32 | IPNPDOC ---
Date Seen The patient was seen on 10/26/18. Progress Note SUBJECTIVE: extremely anxious on my exam repeatedly requesting to go home acknowledges abdomen is distended but reports is "gas" reports liquid stools OBJECTIVE PHYSICAL EXAMINATION: VITAL SIGNS: Please see below. 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 was sent to ED from urgent care for evaluation > here found to be febrile to 103,4, CXR showed left upper lobe infiltrates. Patient was admitted for community acquired pneumonia. #CAP #Diarrhea #Pleural effusion seen on CT #Hyponatremia #Hypothyroidism h/o hemithyroidectomy #Iatrogenic Hypoparathyroid with hypocalcemia #HTN - although AXR had concern for SBO, follow up CT scan did not show SBO and gen surgery manager registration reviewd CT and felt ?ileus but no SBO - therefore pt resumed on diet and discontinued IVFs given - CT did show pleural effusion and therefore this should have a diagnostic tap given patient admitted with PNA, plan for thoracentesis tomorrow - Cont IV ceftriaxone and PO azithromycin - sp calcium gluconate and start oral replacement with calcitriol and calcium carbonate. - pt takes prn PO lasix 20mg at home; received IV lasix this am; will hold off on additional doses for now - given reports of diarrhea and is on abx, check cdiff - start ativan prn anxiety as pt very anxioius Dispo: PT consult for dc planning VS, I&O, 24H, Fishbone Vital Signs/I&O Vital Signs Date Time Temp Pulse Resp B/P (MAP) Pulse Ox O2 Delivery O2 Flow Rate FiO2 10/26/18 06:00 97.7 78 18 135/62 (86) 99 2.0 10/25/18 00:04 Room Air I&O- Last 24 Hours up to 6 AM 10/26/18 05:59 Intake Total 1300 ml Output Total 500 ml Balance 800 ml Laboratory Data 24H LABS Laboratory Tests 2 10/25/18 22:10: Anion Gap 11, Glomerular Filtration Rate 39.2, Blood Urea Nitrogen 20H, Creatinine 1.36H, Sodium Level 130L, Potassium Level 3.7, Chloride Level 97L, Carbon Dioxide Level 22, Calcium Level 5.7*L 10/26/18 05:09: Anion Gap 8, Glomerular Filtration Rate 36.4, Calcium Level 6.3L, Immature Granulocyte % (Auto) 0.4, White Blood Count 11.6H, Red Blood Count 3.44L, Hemoglobin 10.1L, Hematocrit 29.8L, Mean Corpuscular Volume 86.6, Mean Corpuscular Hemoglobin 29.4, Mean Corpuscular Hemoglobin Concent 33.9, Red Cell Distribution Width 13.2, Platelet Count 187, Neutrophils (%) (Auto) 83.9H, Lymphocytes (%) (Auto) 6.1L, Monocytes (%) (Auto) 9.1H, Eosinophils (%) (Auto) 0.2, Basophils (%) (Auto) 0.3, Neutrophils # (Auto) 9.7H, Lymphocytes # (Auto) 0.7L, Monocytes # (Auto) 1.1H, Eosinophils # (Auto) 0.0, Basophils # (Auto) 0.0, Nucleated Red Blood Cells % (auto) 0.0, Aspartate Amino Transf (AST/SGOT) 29, Alanine Aminotransferase (ALT/SGPT) 17, Alkaline Phosphatase 63, Total Bilirubin 0.2#, Direct Bilirubin 0.1, Total Protein 6.2#L, Albumin 2.2#L, Albumin/Globulin Ratio 0.55L, Lipase 147 CBC/BMP Laboratory Tests 10/25/18 22:10 Calcium Level 5.7 *L 10/26/18 05:09 Red Blood Count 3.44 L, Mean Corpuscular Volume 86.6, Mean Corpuscular Hem oglobin 29.4, Mean Corpuscular Hemoglobin Concent 33.9, Red Cell Distribution Width 13.2, Neutrophils (%) (Auto) 83.9 H, Lymphocytes (%) (Auto) 6.1 L, Monocytes (%) (Auto) 9.1 H, Eosinophils (%) (Auto) 0.2, Basophils (%) (Auto) 0.3, Neutrophils # (Auto) 9.7 H, Lymphocytes # (Auto) 0.7 L, Monocytes # (Auto) 1.1 H, Eosinophils # (Auto) 0.0, Basophils # (Auto) 0.0 Microbiology Microbiology 10/24/18 Blood Culture - Preliminary, Resulted No growth after 24 hours . All specim... 10/24/18 Blood Culture - Preliminary, Resulted No growth after 24 hours . All specim... 10/25/18 Gram Stain - Final, Complete 10/25/18 Sputum Culture - Final, Complete CLAYTON FOSTER MD Oct 26, 2018 14:32
[2018-10-26] MEDS: LORazepam 0.5 MG TAB PO PRN (21:37)
[2018-10-26 22:00] VITALS: BP 132/62
[2018-10-27] MEDS: cefTRIAXone SOD 1 GM in D5W MINI-BAG PLUS 50 ML IV SCH (04:27)
[2018-10-27 06:00] VITALS: BP 138/67
[2018-10-27 06:58] LABS: BASO % 0.5 % (0.0-1.0); EOS # 0.2 10^3/uL (0.0-0.50); EOS % 1.8 % (0.0-3.0); HEMATOCRIT 31.4 % (36.0-47.0); HEMOGLOBIN 10.7 g/dl (12.0-15.5); LYMPH % 11.8 % (24.0-44.0); MEAN CORPUSCULAR HGB CONC 34.1 g/dl (32.0-36.5); MONO # 1.2 10^3/uL (0.0-0.8); MONO % 13.1 % (0.0-5.0); NEUTROPHILS # 6.4 10^3/uL (1.8-7.7); NEUTROPHILS % 72.5 % (36.0-66.0); PLATELET COUNT, AUTOMATED 209 10^3/uL (150-450); RED BLOOD COUNT 3.57 10^6/uL (4.00-5.40); WHITE BLOOD COUNT 8.9 10^3/uL (4.0-10.0)
[2018-10-27 07:26] LABS: CALCIUM LEVEL 6.8 MG/DL (8.8-10.2); CREATININE FOR GFR 1.2 MG/DL (0.55-1.30); GLOMERULAR FILTRATION RATE 45.2 (>32); POTASSIUM SERUM 3.2 MEQ/L (3.5-5.1)
[2018-10-27] MEDS: THYROID 30 MG TAB PO SCH ×2 (08:47→08:49)
[2018-10-27] MEDS: ASPIRIN 81 MG ENTERIC TAB PO SCH (08:47)
[2018-10-27] MEDS: PANTOPRAZOLE 40MG INJ (PROTONIX) (C9113) IV SCH (08:47)
[2018-10-27] MEDS: CALCITRIOL 0.25 MCG CAP (S0169) PO SCH ×2 (08:47→21:23)
[2018-10-27] MEDS: CALCIUM GLUCONATE 1,000 MG in D5W MINI-BAG PLUS 100 ML IV SCH ×2 (08:47→21:23)
[2018-10-27] MEDS: CALCIUM CARBONATE 500 MG CHEW U/D PO SCH ×3 (08:48→21:23)
[2018-10-27] MEDS: LORazepam 0.5 MG TAB PO PRN (09:57)
[2018-10-27] MEDS ORDERED: POTASSIUM CHLORIDE 10 MEQ SR TABLET PO ONE (11:00)
--- NOTE | 2018-10-27 11:32 | IPN ---
DATE OF SERVICE: 10/27/2018 Patient seen and examined at the bedside. Chart has been reviewed. Patient denies any fever, chills, denies any cough productive of sputum. Still with some short of breath but anxious to go home. The patient has been treated with IV ceftriaxone with decreased in white count from 16,000 to 8.9. Sputum culture shows oropharyngeal contamination, two sets of blood cultures on 10/24/2018 are negative. Chest x-ray on 10/24/2018 shows left upper lobe infiltrate, left basilar atelectasis and small left pleural reaction. CT abdomen and pelvis on 10/26/2018 due to complaints of abdominal pain showed mild ascites, diarrhea of unknown origin, focal consolidation in the lingula suspicious for pneumonia, bilateral pleural effusion increased from prior. Temperature 98.1, pulse 84, respiratory rate 18,m blood pressure 138/67, 96% 2 liters nasal cannula. Generally patient is awake, alert, oriented times three, answering questions appropriately. No confrontational dyspnea. No use of accessory or respiratory muscles. Mucous membranes are pink and moist. No jugular venous distention (JVD). No thyromegaly. Lungs: Diminished left base. Heart: S1, S2 in sinus rhythm. Abdomen is soft, nontender, nondistended. Positive bowel sounds. No cyanosis, clubbing or any pitting edema. LABORATORY DATA: White count 8.9, hemoglobin 10, hematocrit 31, platelet count 209. Sodium 135, potassium 3.2, chloride 101, bicarbonate 26, BUN 14, creatinine 1.2, glucose 97. ASSESSMENT/PLAN: This is an 88-year-old female with the past medical history significant for hypertension, hyperlipidemia, hyperthyroidism, diabetes diet controlled, hypocalcemia due to hypoparathyroidism, chronic kidney disease III, cervical carcinoma status post resection without chemo or radiation, found to have fever 103.4. Chest x-ray showing left upper lobe consolidation, admitted for community acquired pneumonia. IMPRESSION: 1. Community acquired pneumonia: Currently on IV ceftriaxone started on 10/26/2018. Sputum culture shows oropharyngeal contamination. Two sets of blood cultures were negative. 2. Sepsis secondary to pneumonia: Currently on IV antibiotics. 3. Hypocalcemia secondary to hypoparathyroidism: Currently on calcium gluconate twice a day. 4. Hypokalemia: Supplemented with K-Dur 40 mEq. 5. Hyponatremia without mental status changes. No headaches, seizure activity. 6. Bilateral pleural effusions status post IV Lasix. Thoracentesis today with pleural fluid analysis. 7. History of hypothyroidism and hemithyroidectomy: On supplemental Synthroid. 8. Diarrhea: Had four episodes of loose stools yesterday but had been on Milk of Magnesia. This has since been discontinued. 9. Anxiety on Ativan.
[2018-10-27 11:42] LABS: PH BODY FLUID 7.612 UNITS (NOT ESTABLISHED); SOURCE, BODY FLUID pH PLEURAL
[2018-10-27 11:51] LABS: APPEARANCE, BODY FLUID CLOUDY (CLEAR); PLEURAL FL COLOR YELLOW (COLORLESS); SOURCE, BODY FLUID PLEURAL
[2018-10-27 12:00] VITALS: BP 136/60
[2018-10-27 12:17] LABS: AMYLASE, BODY FLUID 31 U/L (NOT ESTABLISHED); CHOLESTEROL, BODY FLUID < 50 MG/DL (NOT ESTABLISHED); LDH, BODY FLUID 149 U/L (NOT ESTABLISHED); SOURCE, BODY FLUID AMYLASE PLEURAL; SOURCE, BODY FLUID CHOL PLEURAL; SOURCE, BODY FLUID GLUCOSE PLEURAL; SOURCE, BODY FLUID LDH PLEURAL; SOURCE, BODY FLUID TRIG PLEURAL; TRIGLYCERIDE, BODY FLUID 10 MG/DL (NOT ESTABLISHED)
[2018-10-27 12:18] LABS: SOURCE, BODY FLUID ALBUMIN PLEURAL; SOURCE, BODY FLUID TOT PROTEIN PLEURAL; TOTAL PROTEIN, BODY FLUID 2.1 G/DL (NOT ESTABLISHED)
--- NOTE | 2018-10-27 12:29 | REP ---
CHEST, TWO VIEWS: Two views of the chest are performed status post left thoracentesis. There is no pneumothorax. There appear to be very small bilateral effusions. Patch infiltrates are seen throughout the left lung. These are predominantly in the left upper lobe. IMPRESSION: No pneumothorax status post left thoracentesis. Diffuse left upper lobe infiltrate. Small bilateral effusions. Electronically Signed by Edmond Sanabria MD 10/28/2018 09:26 A
[2018-10-27 12:30] VITALS: BP 139/65
[2018-10-27 14:00] VITALS: BP 151/67
--- NOTE | 2018-10-27 20:12 | REP ---
Ultrasound-guided thoracentesis The procedure was performed by RADHA Ortega, under the direct supervision of Dr. Sanabria. The risks and benefits of the procedure were explained to the patient and informed consent was obtained both verbally and written. Directly prior to the start of the procedure, a formal timeout was completed in the exam room. Left pleural fluid was localized using ultrasound guidance. The skin was prepped and draped in a sterile fashion. 6 ml of 1% lidocaine was used as a local anesthetic. Using ultrasound guidance, an 8-Malagasy multi side-hole catheter was inserted and advanced into the fluid. 310 ml of yellow colored fluid was withdrawn and sent to the lab for analysis. The patient tolerated the procedure well and there were no immediate complications. After the appropriate amount of monitored convalescence, the patient was discharged from the department. Reviewed by RADHA Glover 10/27/2018 12:46 P Electronically Signed by Edmond Sanabria MD 10/27/2018 08:03 P
[2018-10-27 22:00] VITALS: BP 138/58
[2018-10-28] MEDS: cefTRIAXone SOD 1 GM in D5W MINI-BAG PLUS 50 ML IV SCH (03:56)
[2018-10-28 06:00] VITALS: BP 137/63
[2018-10-28 06:22] LABS: BASO % 0.5 % (0.0-1.0); EOS # 0.4 10^3/uL (0.0-0.50); EOS % 4.9 % (0.0-3.0); HEMATOCRIT 32.5 % (36.0-47.0); HEMOGLOBIN 10.9 g/dl (12.0-15.5); LYMPH # 1.4 10^3/uL (1.5-4.5); LYMPH % 16.5 % (24.0-44.0); MEAN CORPUSCULAR HEMOGLOBIN 29.1 pg (27.0-33.0); MEAN CORPUSCULAR HGB CONC 33.5 g/dl (32.0-36.5); MEAN CORPUSCULAR VOLUME 86.7 fl (80.0-96.0); MONO # 0.9 10^3/uL (0.0-0.8); MONO % 10.8 % (0.0-5.0); NEUTROPHILS # 5.5 10^3/uL (1.8-7.7); NEUTROPHILS % 66.6 % (36.0-66.0); PLATELET COUNT, AUTOMATED 272 10^3/uL (150-450); RED BLOOD COUNT 3.75 10^6/uL (4.00-5.40); WHITE BLOOD COUNT 8.3 10^3/uL (4.0-10.0)
[2018-10-28 06:52] LABS: CALCIUM LEVEL 7.6 MG/DL (8.8-10.2); CREATININE FOR GFR 1.18 MG/DL (0.55-1.30); GLOMERULAR FILTRATION RATE 46.1 (>32); POTASSIUM SERUM 3.4 MEQ/L (3.5-5.1)
[2018-10-28] MEDS: CALCIUM GLUCONATE 1,000 MG in D5W MINI-BAG PLUS 100 ML IV SCH ×2 (09:00→21:00)
[2018-10-28] MEDS: THYROID 30 MG TAB PO SCH ×2 (09:16→09:17)
[2018-10-28] MEDS: ENOXAPARIN 30 MG/0.3 ML SYR (J1650) SC SCH (09:16)
[2018-10-28] MEDS: CALCIUM CARBONATE 500 MG CHEW U/D PO SCH ×3 (09:17→21:13)
[2018-10-28] MEDS: PANTOPRAZOLE 40MG INJ (PROTONIX) (C9113) IV SCH (09:17)
[2018-10-28] MEDS: CALCITRIOL 0.25 MCG CAP (S0169) PO SCH ×2 (09:17→21:13)
[2018-10-28] MEDS: ASPIRIN 81 MG ENTERIC TAB PO SCH (09:17)
[2018-10-28] MEDS ORDERED: POTASSIUM CHLORIDE 10 MEQ SR TABLET PO ONE (10:00)
--- NOTE | 2018-10-28 10:22 | REP ---
PORTABLE CHEST: AP portable view of the chest is performed and compared to a prior study of 10/27/2018. There is left upper lobe infiltrate again seen unchanged compared to the prior study. Cardiomediastinal silhouette is unchanged. There is no pneumothorax. There is calcification of thoracic aorta. IMPRESSION: Stable left upper lobe infiltrate. No pneumothorax. Electronically Signed by Edmond Sanabria MD 10/29/2018 12:29 A
[2018-10-28] MEDS: FUROSEMIDE 20 MG/2 ML VIAL (J1940) IV SCH ×2 (11:42→16:10)
[2018-10-28 11:43] VITALS: BP 141/70
[2018-10-28 14:00] VITALS: BP 135/59
[2018-10-28 21:08] LABS: CALCIUM LEVEL 7.7 MG/DL (8.8-10.2); CREATININE FOR GFR 1.24 MG/DL (0.55-1.30); GLOMERULAR FILTRATION RATE 43.6 (>32); POTASSIUM SERUM 3.9 MEQ/L (3.5-5.1)
[2018-10-28 22:00] VITALS: BP 139/64
[2018-10-29 00:14] LABS: BODY FLUID CULTURE Not Indicated (.); LEGIONELLA ANTIGEN URINE Positive (Negative); ORGANISM ID Not indicated. (.); SPECIMEN SOURCE Urine (.); URINE STREP PNEUMONIAE ANTIGEN Negative (Negative)
[2018-10-29] MEDS: LORazepam 0.5 MG TAB PO PRN (00:33)
[2018-10-29] MEDS: cefTRIAXone SOD 1 GM in D5W MINI-BAG PLUS 50 ML IV SCH (03:51)
[2018-10-29 06:00] VITALS: BP 132/66
[2018-10-29] MEDS ORDERED: THYROID 30 MG TAB PO SCH (06:00)
[2018-10-29 06:12] LABS: BASO # 0.1 10^3/uL (0.0-0.2); BASO % 0.7 % (0.0-1.0); EOS # 0.4 10^3/uL (0.0-0.50); EOS % 4.5 % (0.0-3.0); HEMATOCRIT 35.9 % (36.0-47.0); LYMPH # 2.3 10^3/uL (1.5-4.5); LYMPH % 27.2 % (24.0-44.0); MEAN CORPUSCULAR HEMOGLOBIN 29.6 pg (27.0-33.0); MEAN CORPUSCULAR HGB CONC 33.4 g/dl (32.0-36.5); MEAN CORPUSCULAR VOLUME 88.6 fl (80.0-96.0); MONO # 0.9 10^3/uL (0.0-0.8); MONO % 11.1 % (0.0-5.0); NEUTROPHILS # 4.6 10^3/uL (1.8-7.7); NEUTROPHILS % 55.2 % (36.0-66.0); PLATELET COUNT, AUTOMATED 294 10^3/uL (150-450); RED BLOOD COUNT 4.05 10^6/uL (4.00-5.40); WHITE BLOOD COUNT 8.3 10^3/uL (4.0-10.0)
[2018-10-29 06:31] LABS: CALCIUM LEVEL 8.2 MG/DL (8.8-10.2); CREATININE FOR GFR 1.2 MG/DL (0.55-1.30); GLOMERULAR FILTRATION RATE 45.2 (>32); POTASSIUM SERUM 3.9 MEQ/L (3.5-5.1)
[2018-10-29] MEDS: FUROSEMIDE 20 MG/2 ML VIAL (J1940) IV SCH (08:40)
[2018-10-29] MEDS: PANTOPRAZOLE 40MG INJ (PROTONIX) (C9113) IV SCH (08:40)
[2018-10-29] MEDS: CALCITRIOL 0.25 MCG CAP (S0169) PO SCH (08:41)
[2018-10-29] MEDS: CALCIUM GLUCONATE 1,000 MG in D5W MINI-BAG PLUS 100 ML IV SCH (08:41)
[2018-10-29] MEDS: ASPIRIN 81 MG ENTERIC TAB PO SCH (08:41)
[2018-10-29] MEDS: ENOXAPARIN 30 MG/0.3 ML SYR (J1650) SC SCH (08:41)
[2018-10-29] MEDS: CALCIUM CARBONATE 500 MG CHEW U/D PO SCH (08:41)
[2018-10-29] MEDS ORDERED: FUROSEMIDE 40 MG TAB PO ONE (10:45)
[2018-10-29] MEDS ORDERED: BLOOKIT XX (11:06)
[2018-10-29] MEDS ORDERED: LASI20TA3 PO (11:06)
--- NOTE | 2018-10-29 11:15 | IPN ---
DATE: 10/28/2018 Patient seen and examined at the bedside. This morning patient complains of persistent dyspnea, but is able to ambulate without significant difficulty. She continues to have a dry productive cough. Afebrile overnight. Thoracentesis yesterday was transudative in nature. Pathology was negative for malignancy. She is continued on intravenous ceftriaxone for pneumonia. She has no nausea, no vomiting, no palpitations or lightheadedness. VITALS: Temperature 98.2, pulse 68, respiratory rate 14, blood pressure 135/59, 96% on 2 liters nasal cannula. Generally patient is awake, alert, oriented times three, answering questions appropriately. No use of accessory or respiratory muscles. Trachea is midline. No jugular venous distention (JVD). No thyromegaly. Lungs are improved with bibasilar crackles, but clear in the upper lobes. Heart S1, S2, sinus rhythm. No murmurs, rubs or gallops. Abdomen is soft, nontender, nondistended. Positive bowel sounds. Extremities no cyanosis, clubbing or any pitting edema. LABORATORY DATA: CBC and metabolic panel have been reviewed. Notable for a potassium of 3.4, hemoglobin of 10, hematocrit of 32 from a previous hemoglobin of 10.7, hematocrit of 31. Microbiology: Pleural fluid acid fast mycobacterium fungal stains are pending. Gram stain is negative with no organisms. Anaerobic cultures still pending. Sputum culture 10/25 is oropharyngeal contamination ASSESSMENT/PLAN: This is an 88-year-old female with history of hypertension, dyslipidemia, hyperthyroidism, diabetes which is diet controlled, hypoparathyroidism and hypocalcemia, chronic kidney disease stage III, cervical CA status post resection without chemo or radiation, who presented with fever of 103 and left upper lobe consolidation on chest x-ray, admitted for community acquired pneumonia and was found to have bilateral pleural effusion status post thoracentesis, which appeared to be transudative. IMPRESSION: 1. Community acquired pneumonia. Currently on IV ceftriaxone started on 10/26/2018. Sputum culture shows oropharyngeal contamination. Thoracentesis performed showed no organisms. AFB and fungal smears are still pending. Two sets of blood cultures are still negative. 2. Bilateral pleural effusions. Appears to be transudative. Will obtain a 2 dimensional echocardiogram to rule out systolic heart failure and valvular disease as cause for the patient's pleural effusion. Cytology was negative for malignancy or bacterial infection. 3. Hypocalcemia due to hypoparathyroidism. On calcium gluconate twice a day. 4. Hypokalemia. Currently supplemented with potassium. 5. Protein calorie malnutrition with hyperalbuminemia. Albumin level is 2.2. Conference Center Coordinator consult in the morning. 6. Type 2 diabetes, diet controlled. No acute issues. Glucose levels appear to be within normal limits, 93 to 123 fasting.
--- NOTE | 2018-10-30 21:37 | ECHO ---
DATE OF PROCEDURE: 10/28/2018 DATE OF : 1930 AGE: 88 REFERRING PROVIDER: Dr. Danielle Ontiveros PATIENT LOCATION: Room 5134 REASON FOR THE ECHOCARDIOGRAM: Heart failure, unspecified. 2D MEASUREMENTS: IVS: 0.8 cm LV: 4.4 cm LVPW: 0.9 cm LA: 3.9 cm Aorta: 2.6 cm IVC: 1.4 cm DOPPLER MEASUREMENTS: Peak velocity across the aortic valve: 1.1 m/s Peak velocity across the LVOT: 0.72 m/s Mitral E: 1.1, Mitral A: 0.66 with a ratio of 1.6 2D COMMENTS: 1. Normal left ventricular size and wall thickness with probably mildly depressed global left ventricular systolic function. The estimated left ventricular systolic ejection fraction is 45-50%. 2. Subjectively, the left atrium appeared to be mildly enlarged. Normal right atrium and right ventricle. 3. The atrial septum appeared to be normal without evidence of defect or shunt. 4. Normal aortic root. 5. Trace pericardial effusion was noted, no evidence of cardiac tamponade. 6. Mildly calcified aortic valve with normal leaflet excursion. Moderately calcified mitral annulus with normal anterior mitral valve leaflet motion. Normal tricuspid valve. The pulmonic valve and proximal pulmonary artery branches were not well visualized. 7. The inferior vena cava was normal in size, central venous pressure is most likely normal. DOPPLER: It detects probably moderate mitral regurgitation. Assessment of the left ventricular diastolic function appeared to be normal. IMPRESSION: 1. Probably mild global left ventricular systolic dysfunction. Assessment of the left ventricular diastolic function appeared to be normal. 2. Aortic valve sclerosis without stenosis or aortic regurgitation. 3. Mitral annulus calcification with moderate mitral regurgitation. Subjectively, the left atrium appeared to be mildly enlarged. 4. Trace pericardial effusion, no evidence of cardiac tamponade. [facility]
--- NOTE | 2018-10-31 21:22 | DSES ---
DATE OF ADMISSION: 10/24/2018 DATE OF DISCHARGE: 10/29/2018 PRIMARY DISCHARGE DIAGNOSES: 1. 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 2. New onset congestive heart failure (CHF), echocardiogram is not available on the day of discharge. 3. Abnormal electrocardiogram (EKG) with premature complexes and moderate intraventricular conduction delay. 4. Hypocalcemia due to hyperparathyroidism. 5. Hypokalemia due to diuresis. 6. Protein calorie malnutrition with hypoalbuminemia. 7. Type 2 diabetes, diet controlled. 8. Pulmonary nodule, repeat CT of the chest in 3 months' time. 9. Diarrhea, likely antibiotic related. DISCHARGE MEDICATIONS: Medications to change after discharge due to new finding of Legionella, this was called into [facility] on [address]. Phone number is [phone]. - doxycycline 100 mg twice a day for 7 days, 14 tablets. - Lasix 20 mg by mouth every 48 hours, 10 tablets, the patient is to reexamined by her primary care physician to determine need for Lasix. This was as needed for more than 3 pound weight gain. She is continue on: - aspirin 81 mg daily - hydralazine 25 mg twice a day - [place] thyroid 50 mg daily The patient was instructed to weigh herself daily and if more than 3 pound weight gain to call her physician and take Lasix every other day. Hold her blood pressure medications for a blood pressure less than 120. HOSPITAL COURSE: This is an 88-year-old female who presented to the emergency room with worsening shortness of breath, fever of 103.4 and left upper lobe infiltrate, admitted for community-acquired pneumonia and started on intravenous ceftriaxone. THe patient was found to have bilateral pleural effusions, status post thoracentesis, which was transudative. Echocardiogram performed, did not have the results on the day of discharge. She was diuresed with intravenous Lasix with some improvement in her respirations. White count decreased from 13,000 on admission to 8.3 on discharge. Serology showed positive urine Legionella and she was discharged on doxycycline 100 mg twice a day to complete a 7 day course. Gram stain, fungal stain, body fluid culture were finalized and showing no growth aerobically. Two sets of blood cultures were negative. Sputum culture on 10/25/2018 showed moderate Gram-negative rods and moderate Gram-positive cocci in clusters and chains. Imaging studies: 10/24/2018 ultrasound shows uterus and ovaries are surgically absent, bladder is unremarkable except for minimal debris. CT of the abdomen and pelvis on 10/24/2018 showed no diverticulitis, diverticulosis, mild colitis cannot be excluded, subpleural pulmonary nodule incompletely imaged, more likely scarring or atelectasis, neoplasia is not likely. Followup non-contrast CT in 3 months may be considered. 10/26/2018 CT of the abdomen due to diarrhea of unknown origin showed bilateral pleural effusions, mild ascites. Chest x-ray on 10/28/2018 showed stable left upper lobe infiltrate. No pneumothorax. FOLLOWUP ISSUES: 1. Pulmonary nodule. Repeat CT of the chest in 3 months. 2. Legionnaire's disease causing pneumonia. Complete 7 days of antibiotic. 3. Congestive heart failure (CHF), new onset. Followup with primary care physician or call MD if the patient's weight is greater than 3 pounds. Take as needed Lasix but hold for low blood pressure.
== END 2018-10-29 13:00 | disposition home health service (06) | DRG 178 ==
LOC: M ED 15:53 → M ED INP 20:08 → M MS5PR 10-25 00:20
PROVIDERS: ADMIT Internal Medicine Nephrology; ATTEND General Practice
PROC: 0W9B3ZZ Drainage of Left Pleural Cavity, Percutaneous Approach (ICD-10-PCS; principal; 2018-10-27 11:00)
DX: A48.1 Legionnaires' disease (principal); E87.1 Hypo-osmolality and hyponatremia; J90 Pleural effusion, not elsewhere classified; E46 Unspecified protein-calorie malnutrition; N25.81 Secondary hyperparathyroidism of renal origin; E87.2 Acidosis; J18.9 Pneumonia, unspecified organism; E87.6 Hypokalemia; I50.9 Heart failure, unspecified; E83.51 Hypocalcemia; E11.9 Type 2 diabetes mellitus without complications; R91.1 Solitary pulmonary nodule; R19.7 Diarrhea, unspecified; Z79.899 Other long term (current) drug therapy; Z88.0 Allergy status to penicillin; Z88.2 Allergy status to sulfonamides; Z88.8 Allergy status to other drugs, medicaments and biological substances; E03.9 Hypothyroidism, unspecified; N18.3 Chronic kidney disease, stage 3 (moderate); Z85.41 Personal history of malignant neoplasm of cervix uteri; Z79.82 Long term (current) use of aspirin; E78.5 Hyperlipidemia, unspecified

== ENCOUNTER → 2018-11-03 | Outpatient (REF) | payer MEDICARE, OTHER ==
[~2018-11-03] MED LIST changes: +BLOOKIT XX; +HYDR25TA PO; +LASI20TA3 PO
== END ==
LOC: M LAB REF 16:45
PROVIDERS: ATTEND Family Medicine
DX: E83.51 Hypocalcemia (principal)

== ENCOUNTER → 2019-02-25 | Outpatient (REF) | payer MEDICARE, OTHER ==
[~2019-02-25] MED LIST changes: -AZIT500T2 PO; +AZIT500T5 PO
== END ==
LOC: M LAB REF 16:20
PROVIDERS: ATTEND Family Medicine
DX: E83.51 Hypocalcemia (principal)

== ENCOUNTER → 2019-04-16 | Outpatient (REF) | payer MEDICARE, OTHER | LOC: M LAB REF 11:47 | PROVIDERS: ATTEND Family Medicine | DX: E83.51 Hypocalcemia (principal); N18.3 Chronic kidney disease, stage 3 (moderate) ==

== ENCOUNTER → 2019-09-17 | Outpatient (REF) | payer MEDICARE, OTHER | LOC: M LAB REF 11:15 | PROVIDERS: ATTEND Family Medicine | DX: E83.51 Hypocalcemia (principal); N18.3 Chronic kidney disease, stage 3 (moderate) ==

== ENCOUNTER → 2020-01-21 | Outpatient (REF) | payer MEDICARE, OTHER ==
[~2020-01-21] MED LIST changes: -AMLO10TA5 PO; +AMLO1TAB25 PO
== END ==
LOC: M LAB REF 11:03
PROVIDERS: ATTEND Family Medicine
DX: E83.51 Hypocalcemia (principal)

== ENCOUNTER → 2020-02-29 | Outpatient (CLI) | payer SELFPAY | LOC: M LABSMTC 15:38 | PROVIDERS: ATTEND Pediatrics | DX: Z11.59 Encounter for screening for other viral diseases (principal) ==

== ENCOUNTER → 2020-05-25 | Outpatient (CLI) | payer MEDICARE, OTHER ==
--- NOTE | 2020-05-25 14:06 | REP ---
INDICATION: COUGH COMPARISON: 10/28/2018 TECHNIQUE: PA and lateral. FINDINGS: The mediastinum and cardiac silhouette are normal. The lung mcadams demonstrate chronic changes without acute consolidation, effusion, or pneumothorax. The skeletal structures are intact and normal. IMPRESSION: No acute cardiopulmonary process. <Electronically signed by Dionicio Gerber > 05/25/20 0721
== END ==
LOC: M RAD 13:45
PROVIDERS: ATTEND Family Medicine
DX: R05 Cough (principal)

== ENCOUNTER → 2020-06-01 | Outpatient (REF) | payer MEDICARE, OTHER | LOC: M LAB REF 13:10 | PROVIDERS: ATTEND Family Medicine | DX: E83.51 Hypocalcemia (principal) ==

== ENCOUNTER → 2020-06-05 | Outpatient (CLI) | payer MEDICARE, OTHER ==
--- NOTE | 2020-06-05 15:03 | REP ---
INDICATION: PAIN AFTER FALL 10/2019 COMPARISON: None. FINDINGS: There is diffuse demineralization. On the lateral view there are calcifications posteriorly suggestive of triquetral fracture. This should be correlated with clinical point tenderness. No other fracture is identified. There is no dislocation. There is mild diffuse joint space narrowing compatible with articular cartilage atrophy. IMPRESSION: Question fracture of the triquetrum. Correlate with clinical point tenderness. Diffuse demineralization. Mild diffuse joint space narrowing. <Electronically signed by Edmond Bess > 06/05/20 1500
== END ==
LOC: M RAD 11:39
PROVIDERS: ATTEND Family Medicine
DX: M25.531 Pain in right wrist (principal)

== ENCOUNTER 2020-08-21 22:47 | Emergency (ER) | payer MEDICARE, OTHER ==
[~2020-08-21] VITALS: Ht 154.9 cm; Wt 62.1 kg
[2020-08-21] MEDS ORDERED: LIDOCAINE W/EPINEPHRINE 1% 20ML VIAL SC ONE (23:10)
[2020-08-21] MEDS ORDERED: BOOSTRIX/ADACEL VACCINE (DIPHTH/PERTUSS/ACELL/TETANUS) 0.5ML SYR IM ONE (23:35)
[2020-08-22 00:06] VITALS: BP 150/80
== END 2020-08-22 00:10 | disposition home or self-care (01) ==
LOC: M ED 22:47
DX: S51.812A Laceration without foreign body of left forearm, initial encounter (principal); W26.8XXA Contact with other sharp object(s), not elsewhere classified, initial encounter; Y92.010 Kitchen of single-family (private) house as the place of occurrence of the external cause; Y93.9 Activity, unspecified; Y99.9 Unspecified external cause status; I10 Essential (primary) hypertension; E78.5 Hyperlipidemia, unspecified; R51.9 Headache, unspecified; K57.30 Diverticulosis of large intestine without perforation or abscess without bleeding; Z88.0 Allergy status to penicillin; Z88.2 Allergy status to sulfonamides; Z79.899 Other long term (current) drug therapy; Z79.82 Long term (current) use of aspirin

== ENCOUNTER 2020-08-28 07:53 | Emergency (ER) | payer MEDICARE, OTHER ==
[~2020-08-28] VITALS: Ht 154.9 cm; Wt 61.0 kg
[2020-08-28 07:53] VITALS: BP 161/65
== END 2020-08-28 08:23 | disposition left against medical advice (07) ==
LOC: M ED 07:53
DX: Z53.21 Procedure and treatment not carried out due to patient leaving prior to being seen by health care provider (principal)

== ENCOUNTER → 2020-10-27 | Outpatient (REF) | payer MEDICARE, OTHER | LOC: M LAB REF 11:16 | PROVIDERS: ATTEND Family Medicine | DX: E83.51 Hypocalcemia (principal) ==